=== PATIENT | female | born 2000 | race Caucasian/White ===

== ENCOUNTER 2022-08-16 19:36 | Emergency (ER) | payer MEDICAID ==
[~2022-08-16] VITALS: Ht 172.7 cm; Wt 72.2 kg
[2022-08-16] MEDS ORDERED: BUPRENORPHINE 8MG SL TABLET SL ONE (22:00)
[2022-08-17 01:00] VITALS: BP 124/81
== END 2022-08-17 01:09 | disposition home or self-care (01) ==
LOC: ER 19:36
DX: F11.23 Opioid dependence with withdrawal (principal); Z86.59 Personal history of other mental and behavioral disorders; Z98.890 Other specified postprocedural states
CPT/HCPCS: 81025; 99283; Z7610